=== PATIENT | female | born 1970 | race Caucasian/White ===

== ENCOUNTER → 2020-07-15 | Outpatient (CLI) | payer SELFPAY ==
[~2020-07-15] MED LIST: ASPI81TA55 PO; LISI20TA26 PO; TRAM50TA2 PO; hctz
== END ==
LOC: CARD 09:30
PROVIDERS: ATTEND Nurse Practitioner Family
DX: Z82.79 Family history of other congenital malformations, deformations and chromosomal abnormalities (principal)
CPT/HCPCS: 93306

== ENCOUNTER → 2020-08-21 | Outpatient (CLI) | payer SELFPAY | LOC: LABNPT 08:00 | PROVIDERS: ATTEND Nurse Practitioner Family | DX: Z01.812 Encounter for preprocedural laboratory examination (principal); Z20.822 Contact with and (suspected) exposure to COVID-19 | CPT/HCPCS: 87635 ==

== ENCOUNTER 2020-08-25 19:46 | Outpatient (CLI) | payer OTHER | END 2020-08-26 06:18 | disposition home or self-care (01) | LOC: SLEEP 19:46 | PROVIDERS: ATTEND Nurse Practitioner Family | DX: G47.33 Obstructive sleep apnea (adult) (pediatric) (principal) | CPT/HCPCS: 95810 ==

== ENCOUNTER → 2020-10-07 | Outpatient (CLI) | payer OTHER ==
[~2020-10-07] MED LIST changes: +CATHETER FLUSH 10 ML SYR IV PRN; +REGADENOSON 0.4 MG/5 ML SYR (LEXISCAN) IV ONE
[2020-10-07 13:10] VITALS: BP 162/84
--- NOTE | 2020-10-08 12:42 | Cardiology Stress Test Report ---
Stress Test Report Date of Procedure/Referring: Date of Procedure: Oct 07, 2020 PCP Oriana Hernandez MD Admitting Physician Center/[facility] Indications: CP Baseline Heart Rate: 81 Baseline Blood Pressure: Blood Pressure Systolic: 162 Blood Pressure Diastolic: 84 Baseline Vitals Vital Signs Date Time Temp Pulse Resp B/P (MAP) Pulse Ox O2 Delivery O2 Flow Rate FiO2 10/07/20 13:10 81 162/84 (110) 98 Baseline EKG: Baseline EKG: NSR Summary After explaining the procedure to the patient, she signed a consent and then brought to the stress nuclear laboratory. Patient received 0.4 mg Lexiscan for stress test, ECG, heart rate and blood pressure were monitored continuously. Resting and stress dose of radio tracer were injected, imaging was acquired and reviewed in short axis, horizontal long axis and vertical long axis views. TID: 0.99 SSS: 11 SDS: 9 EF: 67 1. Patient tolerated Lexiscan well 2. Breast attenuation affecting the quality of the images, there is reversible ischemia involving the whole anterior wall and anterolateral wall 3. Normal left ventricular size, EF 67% ORIANA HERNANDEZ MD Oct 08, 2020 12:42
== END ==
LOC: CARD 12:15
PROVIDERS: ATTEND Internal Medicine Cardiovascular Disease
DX: I25.10 Atherosclerotic heart disease of native coronary artery without angina pectoris (principal); I10 Essential (primary) hypertension
CPT/HCPCS: 78452; 93017; A9502

== ENCOUNTER 2020-10-27 12:28 | Emergency (ER) | payer OTHER ==
[~2020-10-27] VITALS: Ht 188 cm; Wt 143.0 kg
[~2020-10-27 12:28] MED LIST changes: +ASPI-1238 PO; -CATHETER FLUSH 10 ML SYR IV PRN; +FURO40TA4 PO; +GABA300C PO; +LEVO200C2 PO; +LOSA1TAB23 PO; +MTP25TSR PO; -REGADENOSON 0.4 MG/5 ML SYR (LEXISCAN) IV ONE
[2020-10-27] MEDS ORDERED: hydrALAZINE (APESOLINE) 20 MG/ML VIAL IV ONE (14:00)
--- NOTE | 2020-10-27 14:49 | Diagnostic Imaging Report ---
INDICATION: Hypertension Frontal chest obtained at 0226 p.m. and compared to 10/14/2020 Heart and mediastinal silhouette are normal in appearance. The lungs appear clear. There is no pneumothorax or pleural fluid. IMPRESSION: No acute process in the chest and no change compared to the prior study. Dictated by: Dictated on workstation # [id number]
[2020-10-27 14:50] LABS: BILIRUBIN,URINE NEGATIVE (NEGATIVE); CLARITY,URINE CLEAR; COLOR,URINE YELLOW; GLUCOSE, URINE (UA) NEGATIVE (NEGATIVE); KETONES,URINE NEGATIVE (NEGATIVE); LEUKOCYTE ESTERASE ,URINE NEGATIVE (NEGATIVE); NITRITE,URINE NEGATIVE (NEGATIVE); PROTEIN,URINE NEGATIVE (NEGATIVE)
[2020-10-27 15:03] LABS: BASOPHILS # (AUTO) 0.1 10^3/uL (0.0-0.1); BASOPHILS % (AUTO) 1 % (0-10); EOSINOPHILS # (AUTO) 0.1 10^3/uL (0.0-0.3); EOSINOPHILS % (AUTO) 3 % (0-10); HEMATOCRIT 39 % (35-52); HEMOGLOBIN 11.5 g/dL (11.5-16.0); LYMPHOCYTES # (AUTO) 0.6 10^3/uL (1.0-4.0); LYMPHOCYTES % (AUTO) 14 % (12-44); MEAN CORPUSCULAR HEMOGLOBIN 26 pg (25-34); MEAN CORPUSCULAR HGB CONC 30 g/dL (32-36); MEAN CORPUSCULAR VOLUME 86 fL (80-99); MEAN PLATELET VOLUME 11.9 fL (9.0-12.2); MONOCYTES # (AUTO) 0.4 10^3/uL (0.0-1.0); MONOCYTES % (AUTO) 8 % (0-12); NEUTROPHILS # (AUTO) 3.4 10^3/uL (1.8-7.8); NEUTROPHILS % (AUTO) 74 % (42-75); PLATELET COUNT 205 10^3/uL (130-400); WHITE BLOOD COUNT 4.6 10^3/uL (4.3-11.0)
[2020-10-27 15:07] LABS: BACTERIA,URINE NEGATIVE /HPF
[2020-10-27 15:14] LABS: ALBUMIN 4.3 GM/DL (3.2-4.5)
[2020-10-27 15:15] LABS: CHLORIDE 103 MMOL/L (98-107); POTASSIUM 3.7 MMOL/L (3.6-5.0); SODIUM 139 MMOL/L (135-145)
[2020-10-27 15:16] LABS: CALCIUM 9.8 MG/DL (8.5-10.1); PROTHROMBIN TIME PATIENT 13.4 SEC (12.2-14.7)
[2020-10-27 15:17] LABS: GLUCOSE 97 MG/DL (70-105); TOTAL PROTEIN 7.8 GM/DL (6.4-8.2)
[2020-10-27 15:18] LABS: CARBON DIOXIDE 22 MMOL/L (21-32)
[2020-10-27 15:19] LABS: BILIRUBIN,TOTAL 0.6 MG/DL (0.1-1.0)
[2020-10-27 15:20] LABS: ALKALINE PHOSPHATASE 78 U/L (40-136)
[2020-10-27 15:21] LABS: CREATININE SERUM 0.76 MG/DL (0.60-1.30); GFR ESTIMATED > 60
[2020-10-27 15:22] LABS: BUN/CREATININE RATIO 14
[2020-10-27 15:24] LABS: ALANINE AMINOTRANSFERASE 20 U/L (0-55)
--- NOTE | 2020-10-27 15:46 | ED Cardiac General ---
History of Present Illness General Chief Complaint: Cardiac/General Problems Stated Complaint: HIGH BP Nursing Triage Note: Pt reports to ER today ambulatory from [facility] with complaints of High blood pressure. Pt went to [facility] initially for a scheduled appt to have labs drawn. Before the lab draw, they checked her BP and it was elevated. She was instructed by [facility] to come to the ER and be seen/evaluated. Allergies and Home Medications Allergies Coded Allergies: tramadol (Verified Allergy, Unknown, 10/14/20) Home Medications Aspirin 81 Mg Tablet.dr, 81 MG PO DAILY, (Reported) Furosemide 40 Mg Tablet, 40 MG PO DAILY PRN for WATER RETENTION, (Reported) Gabapentin 300 Mg Capsule, 300 MG PO TID PRN for NERVE PAIN, (Reported) Levothyroxine Sodium 200 Mcg Capsule, 200 MCG PO DAILY, (Reported) Losartan/Hydrochlorothiazide 1 Each Tablet, 1 EACH PO DAILY, (Reported) LAST FILLED 06/01/2020 #90 90 DAY SUPPLY Metoprolol Succinate 25 Mg Tab.er.24h, 25 MG PO DAILY, (Reported) Past Geswgzg-Qufsct-Jlluev Hx Past Medical History Section, Tonsillectomy, Tubal Ligation Respiratory: Yes (SOB, POSS COPD) Cardiac: Yes High Cholesterol, Hypertension Neurological: No Genitourinary: No Gastrointestinal: No Cancer: No Physical Exam Vital Signs Vital Signs - First Documented 10/27/20 12:50 Temp 36.6 Pulse 74 Resp 24 B/P (MAP) 216/102 (140) Capillary Refill : Less Than 3 Seconds Height, Weight, BMI Height: '" Weight: lbs. oz. kg; 40.00 BMI Method: Progress/Results/Core Measures Results/Orders Lab Results Laboratory Tests Test 10/27/20 14:27 10/27/20 14:50 Range/Units Urine Color YELLOW Urine Clarity CLEAR Urine pH 6.0 5-9 Urine Specific [place] 1.025 H 1.016-1.022 Urine Protein NEGATIVE NEGATIVE Urine Glucose (UA) NEGATIVE NEGATIVE Urine Ketones NEGATIVE NEGATIVE Urine Nitrite NEGATIVE NEGATIVE Urine Bilirubin NEGATIVE NEGATIVE Urine Urobilinogen 0.2 < = 1.0 MG/DL Urine Leukocyte Esterase NEGATIVE NEGATIVE Urine RBC (Auto) NEGATIVE NEGATIVE Urine RBC NONE /HPF Urine WBC NONE /HPF Urine Squamous Epithelial Cells 5-10 /HPF Urine Crystals NONE /LPF Urine Bacteria NEGATIVE /HPF Urine Casts NONE /LPF Urine Mucus NEGATIVE /LPF Urine Culture Indicated NO White Blood Count 4.6 4.3-11.0 10^3/uL Red Blood Count 4.50 3.80-5.11 10^6/uL Hemoglobin 11.5 11.5-16.0 g/dL Hematocrit 39 35-52 % Mean Corpuscular Volume 86 80-99 fL Mean Corpuscular Hemoglobin 26 25-34 pg Mean Corpuscular Hemoglobin Concent 30 L 32-36 g/dL Red Cell Distribution Width 15.5 H 10.0-14.5 % Platelet Count 205 130-400 10^3/uL Mean Platelet Volume 11.9 9.0-12.2 fL Immature Granulocyte % (Auto) 0 % Neutrophils (%) (Auto) 74 42-75 % Lymphocytes (%) (Auto) 14 12-44 % Monocytes (%) (Auto) 8 0-12 % Eosinophils (%) (Auto) 3 0-10 % Basophils (%) (Auto) 1 0-10 % Neutrophils # (Auto) 3.4 1.8-7.8 10^3/uL Lymphocytes # (Auto) 0.6 L 1.0-4.0 10^3/uL Monocytes # (Auto) 0.4 0.0-1.0 10^3/uL Eosinophils # (Auto) 0.1 0.0-0.3 10^3/uL Basophils # (Auto) 0.1 0.0-0.1 10^3/uL Immature Granulocyte # (Auto) 0.0 0.0-0.1 10^3/uL Prothrombin Time 13.4 12.2-14.7 SEC INR Comment 1.0 0.8-1.4 Activated Partial Thromboplast Time 37 H 24-35 SEC Sodium Level 139 135-145 MMOL/L Potassium Level 3.7 3.6-5.0 MMOL/L Chloride Level 103 98-107 MMOL/L Carbon Dioxide Level 22 21-32 MMOL/L Anion Gap 14 5-14 MMOL/L Blood Urea Nitrogen 11 7-18 MG/DL Creatinine 0.76 0.60-1.30 MG/DL Estimat Glomerular Filtration Rate > 60 BUN/Creatinine Ratio 14 Glucose Level 97 70-105 MG/DL Calcium Level 9.8 8.5-10.1 MG/DL Corrected Calcium 9.6 8.5-10.1 MG/DL Magnesium Level 2.0 1.6-2.4 MG/DL Total Bilirubin 0.6 0.1-1.0 MG/DL Aspartate Amino Transf (AST/SGOT) 20 5-34 U/L Alanine Aminotransferase (ALT/SGPT) 20 0-55 U/L Alkaline Phosphatase 78 40-136 U/L Troponin I < 0.028 <0.028 NG/ML B-Type Natriuretic Peptide 82.5 <100.0 PG/ML Total Protein 7.8 6.4-8.2 GM/DL Albumin 4.3 3.2-4.5 GM/DL Serum Test, Qualitative NEGATIVE NEGATIVE My Orders Orders - SIGRID GUARDADO DO Ed Iv/Invasive Line Start (10/27/20 13:35) Ekg Tracing (10/27/20 13:35) Monitor-Rhythm Ecg Trace Only (10/27/20 13:35) BNP (10/27/20 13:35) Cbc With Automated Diff (10/27/20 13:35) Comprehensive Metabolic Panel (10/27/20 13:35) Hcg,Qualitative Serum (10/27/20 13:35) Magnesium (10/27/20 13:35) Protime With Inr (10/27/20 13:35) Partial Thromboplastin Time (10/27/20 13:35) Ua Culture If Indicated (10/27/20 13:35) Troponin I (10/27/20 13:35) Chest 1 View, Ap/Pa Only (10/27/20 13:46) Hydralazine Injection (Apresoline Inject (10/27/20 14:00) Medications Given in ED Current Medications Medications Dose Ordered Sig/Eula Route Start Time Stop Time Status Last Admin Dose Admin Hydralazine HCl 10 mg ONCE ONCE IV 10/27/20 14:00 10/27/20 14:01 DC 10/27/20 14:42 10 MG Vital Signs/I&O 10/27/20 12:50 Temp 36.6 Pulse 74 Resp 24 B/P (MAP) 216/102 (140) Blood Pressure Mean: 140 Departure Impression Primary Impression: HTN (hypertension) Disposition: 01 HOME, SELF-CARE Condition: Improved Departure-Patient Inst. Decision time for Depature: 15:45 Referrals: [facility] (PCP/Family) Primary Care Physician ORINAA BEACH MD Patient Instructions: DASH Diet, High Blood Pressure (DC) Add. Discharge Instructions: TAKE YOUR MEDICATIONS PRESCRIBED--TAKE BOTH THE LOSARTAN/HYDROCHLOROTHIAZIDE IN ADDITION TO METOPROLOL FOLLOW UP WITH DR. BEACH THIS WEEK FOR FURTHER CARE All discharge instructions reviewed with patient and/or family. Voiced und erstanding. SIGRID GUARDADO DO Oct 27, 2020 15:46
[2020-10-27 16:00] VITALS: BP 170/87
== END 2020-10-27 16:00 | disposition home or self-care (01) ==
LOC: EDUNIT# 12:28 → ER 12:30
DX: I10 Essential (primary) hypertension (principal); Z79.82 Long term (current) use of aspirin; Z79.899 Other long term (current) drug therapy
CPT/HCPCS: 36415; 71045; 80053; 81000; 83735; 83880; 84484; 84703; 85025; 85610; 85730; 93005; 93041

== ENCOUNTER 2022-11-24 18:36 | Emergency (ER) | payer SELFPAY ==
[~2022-11-24] VITALS: Ht 188 cm; Wt 124.0 kg
[2022-11-24 18:50] VITALS: BP 150/95
--- NOTE | 2022-11-24 19:03 | ED General ---
General Stated Complaint: DIZZY/DOUBLE VISION/WEAKNESS Source of Information: Patient Exam Limitations: No Limitations (KENDRA WEIR) History of Present Illness Date Seen by Provider: Nov 24, 2022 Time Seen by Provider: 19:00 Initial Comments Patient is a 52-year-old female with a history of hypothyroidism who presents to ED for lightheadedness, nausea and the sensation that she is going to pass out. Symptoms started around 1 PM today while making lunch. She denies the sensation as a room spinning. Feels more lightheaded. She feels weak she feels like she is going to vomit. She denies of any specific headache, visual loss, unilateral weakness or sensory changes, chest pain, cough or shortness of breath. She was seen at [facility] was sent over to the ED for concern for her symptoms. She was seen yesterday had a increase of her levothyroxine to 300 mcg. She was started on Lyrica 75 due to her neuropathy pain in her lower legs. She has chronic lower leg swelling for the past 4 years. Has been on Lasix for 4 years. No known cardiac history according to patient. She denies any recent travels or surgeries. Denies any fever, chills, body aches, sore throat, cough, abdominal pain, vomiting, diarrhea, dysuria, hematuria. Patient reports global weakness (KENDRA WEIR) Allergies and Home Medications Allergies Coded Allergies: tramadol (Verified Allergy, Unknown, 10/14/20) Patient Home Medication List Home Medication List Reviewed: Yes (KENDRA WEIR) Aspirin (Aspirin EC) 81 Mg Tablet.dr, 81 MG PO DAILY, (Reported) Entered as Reported by: PRADEEP WESTBROOK on 10/14/20831 Furosemide (Furosemide) 40 Mg Tablet, 40 MG PO DAILY PRN for WATER RETENTION, (Reported) Entered as Reported by: PRADEEP WESTBROOK on 10/14/20831 Gabapentin (Neurontin) 300 Mg Capsule, 300 MG PO TID PRN for NERVE PAIN, (Reported) Entered as Reported by: PRADEEP WESTBROOK on 10/14/20 08 Levothyroxine Sodium (Levothyroxine) 200 Mcg Capsule, 200 MCG PO DAILY, (Reported) Entered as Reported by: PRADEEP WESTBROOK on 7/7/21 0832 Losartan/Hydrochlorothiazide (Losartan-Hctz 100-25 mg Tab) 1 Each Tablet, 1 EACH PO DAILY, (Reported) Entered as Reported by: PRADEEP WESTBROOK on 10/14/20 0832 Metoprolol Succinate (Metoprolol Succinate) 25 Mg Tab.er.24h, 25 MG PO DAILY, (Reported) Entered as Reported by: PRADEEP WESTBROOK on 10/14/20 0832 Review of Systems Review of Systems Constitutional: No chills; dizziness, malaise, weakness EENTM: No hearing loss, No ear pain, No blurred vision, No double vision Respiratory: No cough, No dyspnea on exertion Cardiovascular: No chest pain Gastrointestinal: No abdominal pain, No diarrhea, No nausea, No vomiting Genitourinary: No decreased output, No discharge Musculoskeletal: No back pain, No joint pain (KENDRA WEIR) All Other Systems Reviewed Negative Unless Noted: Yes (KENDRA WEIR) Past Enntgbi-Nzscrv-Clekqm Hx Past Medical History Surgery/Hospitalization HX: CARDIAC CATH 10/14/20--MILD DISEASE, NO INTERVENTION Surgeries: Yes Cardiac, Section, Tonsillectomy, Tubal Ligation Respiratory: Yes (SOB, POSS COPD) Cardiac: Yes Chronic Edema/Swelling, High Cholesterol, Hypertension Neurological: No Genitourinary: No Gastrointestinal: No Musculoskeletal: No Endocrine: Yes (MORBID OBESITY) HEENT: No Cancer: No Psychosocial: Yes Anxiety Integumentary: No Blood Disorders: No (KENDRA WEIR) Physical Exam Vital Signs Vital Signs - First Documented 11/24/22 18:50 Temp 36.9 Pulse 75 Resp 18 B/P (MAP) 150/95 (113) O2 Delivery Room Air (GEO,SIGRID K DO) Vital Signs Capillary Refill : (KENDRA WEIR) Height, Weight, BMI Height: '" Weight: lbs. oz. kg; 40.00 BMI Method: General Appearance: No Apparent Distress, WD/WN Eyes: Bilateral Eye Normal Inspection, Bilateral Eye PERRL, Bilateral Eye EOMI HEENT: PERRL/EOMI, TMs Normal, Normal ENT Inspection, Pharynx Normal Neck: Full Range of Motion, Normal Inspection, Non Tender, Supple Respiratory: Chest Non Tender, Lungs Clear, Normal Breath Sounds, No Accessory Muscle Use, No Respiratory Distress Cardiovascular: Regular Rate, Rhythm, No Gallop, No JVD, No Murmur, Other (Bilateral lower extremity edema) Gastrointestinal: Normal Bowel Sounds, No Organomegaly, No Pulsatile Mass, Non Tender Back: Normal Inspection, No CVA Tenderness, No Vertebral Tenderness Extremity: Normal Capillary Refill, Normal Inspection, Normal Range of Motion, Non Tender Neurologic/Psychiatric: Alert, Oriented x3, No Motor/Sensory Deficits, Normal Mood/Affect, centerpuncher II-XII Norm as Tested Skin: Other (Stasis dermatitis bilateral lower extremities with +2 pitting edema) (KENDRA WEIR) Progress/Results/Core Measures Suspected Sepsis SIRS Temperature: Pulse: Respiratory Rate: Laboratory Tests 11/24/22 19:14: White Blood Count 4.5 Blood Pressure / Mean: Laboratory Tests 11/24/22 19:14: Creatinine 1.08, Platelet Count 159, Total Bilirubin 0.6 (KENDRA WEIR) Results/Orders Lab Results Laboratory Tests Test 11/24/22 19:14 11/24/22 19:55 Range/Units White Blood Count 4.5 4.3-11.0 10^3/uL Red Blood Count 4.06 3.80-5.11 10^6/uL Hemoglobin 12.6 11.5-16.0 g/dL Hematocrit 39 35-52 % Mean Corpuscular Volume 95 80-99 fL Mean Corpuscular Hemoglobin 31 25-34 pg Mean Corpuscular Hemoglobin Concent 33 32-36 g/dL Red Cell Distribution Width 14.1 10.0-14.5 % Platelet Count 159 130-400 10^3/uL Mean Platelet Volume 12.2 9.0-12.2 fL Immature Granulocyte % (Auto) 0 % Neutrophils (%) (Auto) 76 H 42-75 % Lymphocytes (%) (Auto) 12 12-44 % Monocytes (%) (Auto) 9 0-12 % Eosinophils (%) (Auto) 2 0-10 % Basophils (%) (Auto) 1 0-10 % Neutrophils # (Auto) 3.5 1.8-7.8 10^3/uL Lymphocytes # (Auto) 0.5 L 1.0-4.0 10^3/uL Monocytes # (Auto) 0.4 0.0-1.0 10^3/uL Eosinophils # (Auto) 0.1 0.0-0.3 10^3/uL Basophils # (Auto) 0.0 0.0-0.1 10^3/uL Immature Granulocyte # (Auto) 0.0 0.0-0.1 10^3/uL Sodium Level 140 135-145 MMOL/L Potassium Level 4.1 3.6-5.0 MMOL/L Chloride Level 103 98-107 MMOL/L Carbon Dioxide Level 25 21-32 MMOL/L Anion Gap 12 5-14 MMOL/L Blood Urea Nitrogen 19 H 7-18 MG/DL Creatinine 1.08 0.60-1.30 MG/DL Estimat Glomerular Filtration Rate 62 BUN/Creatinine Ratio 18 Glucose Level 106 H 70-105 MG/DL Calcium Level 10.1 8.5-10.1 MG/DL Corrected Calcium 8.5-10.1 MG/DL Magnesium Level 2.1 1.6-2.4 MG/DL Total Bilirubin 0.6 0.1-1.0 MG/DL Aspartate Amino Transf (AST/SGOT) 26 5-34 U/L Alanine Aminotransferase (ALT/SGPT) 25 0-55 U/L Alkaline Phosphatase 96 40-136 U/L C-Reactive Protein High Sensitivity 0.59 H 0.00-0.50 MG/DL Total Protein 8.9 H 6.4-8.2 GM/DL Albumin 4.7 H 3.2-4.5 GM/DL Lipase 23 8-78 U/L Thyroid Stimulating Hormone (TSH) 6.04 H 0.35-4.94 UIU/ML Urine Color YELLOW Urine Clarity CLEAR Urine pH 6.0 5-9 Urine Specific [place] 1.010 L 1.016-1.022 Urine Protein NEGATIVE NEGATIVE Urine Glucose (UA) NEGATIVE NEGATIVE Urine Ketones NEGATIVE NEGATIVE Urine Nitrite NEGATIVE NEGATIVE Urine Bilirubin NEGATIVE NEGATIVE Urine Urobilinogen 0.2 < = 1.0 MG/DL Urine Leukocyte Esterase 1+ H NEGATIVE Urine RBC (Auto) NEGATIVE NEGATIVE Urine RBC NONE /HPF Urine WBC 2-5 /HPF Urine Squamous Epithelial Cells 5-10 /HPF Urine Crystals NONE /LPF Urine Bacteria TRACE /HPF Urine Casts NONE /LPF Urine Mucus SMALL H /LPF Urine Culture Indicated NO (GEO,SIGRID K DO) Medications Given in ED Current Medications Medications Dose Ordered Sig/Eula Route Start Time Stop Time Status Last Admin Dose Admin Meclizine HCl 25 mg ONCE ONCE PO 11/24/22 20:15 11/24/22 20:16 DC 11/24/22 20:08 25 MG Ondansetron HCl 4 mg ONCE ONCE IVP 11/24/22 20:15 11/24/22 20:16 DC 11/24/22 20:08 4 MG (GEOSIGRID Peggy ZACARIAS) Vital Signs/I&O 11/24/22 18:50 Temp 36.9 Pulse 75 Resp 18 B/P (MAP) 150/95 (113) O2 Delivery Room Air (SIGRID GUARDADO DO) Vital Signs/I&O Capillary Refill : (KENDRA WEIR) ECG Comment Sinus rhythm, possible right ventricular conduction delay, 71 bpm, QRS duration 126 MS, QTc 425 MS (KENDRA WEIR) Departure Communication (PCP) Reviewed previous ER visits, H&P, lab testing. Patient was sent over from [facility] for further evaluation of dizziness, lightheadedness, blurry vision. The symptoms started at 1 PM today while making lunch. She had acute episode of dizziness and lightheadedness. Denies the room spinning. Generalized weakness with the dizziness. Nausea without vomiting. Denied of any specific head pain or any focal neural deficits. No history of similar symptoms in the past. 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 She did have a cardiac catheterization 2020 that showed mild CAD. No specific chest pain, cough, shortness of breath or recent URI symptoms. She started Lyrica 75 mg p.o. last night which she has not taken in the past. Has been on gabapentin previously. Increase her levothyroxine to 300 mcg yesterday secondary to elevated TSH from recent lab work at [facility]. Chronic lower extremity edema currently on Lasix for 4 years. Patient vital signs stable. She denies any head pain, ear ringing, current blurry vision. Generalized lab work, EKG, CT scan of the head was ordered. CBC, CMP was grossly unremarkable. Urinalysis was negative for infection. TSH was 6.04. However she just increased her levothyroxine which I suspect changes here. CT scan of the head showed third ventriculomegaly. No evidence of stroke, mass. Due to the CT scan findings consulted with Dr. Prado neurologist at [facility]. Patient does not clinically have symptoms suggesting pseudotumor cerebri. Clinically does not appear to be like meningitis. Clinically does not appear to be NPH as she has no poor balance, falling, trouble walking, unsteady gait, mood changes or cognitive difficulties. After talking with neurologist he thought this is likely more of a chronic finding. He did not suggest getting a MRI or even doing a lumbar puncture at this time. He did not necessarily suggest getting follow-up imaging at this time. If she does develop any symptoms of severe head pain, ear ringing, vision changes, coordination concerns or cognitive difficulties then further evaluation would be suggested. Recommend following up with her primary care physician for reevaluation. After a dose of meclizine and Zofran her symptoms appear to be improving. There was no appreciation of nystagmus. Vital signs remained stable. No focal neural deficits. Recommend follow-up your PCP in 2 days for reevaluation. (KENDRA WEIR) Impression Primary Impression: Dizziness Disposition: 01 HOME, SELF-CARE Condition: Stable Departure-Patient Inst. Decision time for Depature: 21:36 (KENDRA WEIR) Referrals: [facility] [place] Primary Care Physician Patient Instructions: Dizziness, Adult ED Add. Discharge Instructions: Recommend following up with your primary care physician regarding the Lyrica. If any worsening symptoms return back to ED. ATTENDING PHYSICIAN NOTE: I WAS PHYSICALLY PRESENT ER PHYSICIAN, BUT I WAS NOT INVOLVED IN ANY DECISION MAKING OR ANY CARE OF THIS PATIENT, AND I AM NOT COLLABORATING PHYSICIAN. (SIGRID GUARDADO DO) KENDRA WEIR Nov 24, 2022 19:03 SIGRID GUARDADO DO Nov 25, 2022 06:07
[2022-11-24 19:26] LABS: BASOPHILS % (AUTO) 1 % (0-10); EOSINOPHILS # (AUTO) 0.1 10^3/uL (0.0-0.3); EOSINOPHILS % (AUTO) 2 % (0-10); HEMATOCRIT 39 % (35-52); HEMOGLOBIN 12.6 g/dL (11.5-16.0); LYMPHOCYTES # (AUTO) 0.5 10^3/uL (1.0-4.0); LYMPHOCYTES % (AUTO) 12 % (12-44); MEAN CORPUSCULAR HEMOGLOBIN 31 pg (25-34); MEAN CORPUSCULAR HGB CONC 33 g/dL (32-36); MEAN CORPUSCULAR VOLUME 95 fL (80-99); MEAN PLATELET VOLUME 12.2 fL (9.0-12.2); MONOCYTES # (AUTO) 0.4 10^3/uL (0.0-1.0); MONOCYTES % (AUTO) 9 % (0-12); NEUTROPHILS # (AUTO) 3.5 10^3/uL (1.8-7.8); NEUTROPHILS % (AUTO) 76 % (42-75); PLATELET COUNT 159 10^3/uL (130-400); WHITE BLOOD COUNT 4.5 10^3/uL (4.3-11.0)
[2022-11-24 20:12] LABS: ALANINE AMINOTRANSFERASE 25 U/L (0-55); ALBUMIN 4.7 GM/DL (3.2-4.5); ALKALINE PHOSPHATASE 96 U/L (40-136); BILIRUBIN,TOTAL 0.6 MG/DL (0.1-1.0); BUN/CREATININE RATIO 18; CALCIUM 10.1 MG/DL (8.5-10.1); CHLORIDE 103 MMOL/L (98-107); CREATININE SERUM 1.08 MG/DL (0.60-1.30); GFR ESTIMATED 62; GLUCOSE 106 MG/DL (70-105); LIPASE 23 U/L (8-78); MAGNESIUM 2.1 MG/DL (1.6-2.4); POTASSIUM 4.1 MMOL/L (3.6-5.0); SODIUM 140 MMOL/L (135-145); TOTAL PROTEIN 8.9 GM/DL (6.4-8.2)
[2022-11-24] MEDS ORDERED: ONDANSETRON 4 MG/2 ML (SDV) Z0FRAN IVP ONE (20:15)
[2022-11-24] MEDS ORDERED: MECLIZINE 25 MG TABLET PO ONE (20:15)
[2022-11-24 20:18] LABS: BACTERIA,URINE TRACE /HPF; BILIRUBIN,URINE NEGATIVE (NEGATIVE); CLARITY,URINE CLEAR; COLOR,URINE YELLOW; GLUCOSE, URINE (UA) NEGATIVE (NEGATIVE); KETONES,URINE NEGATIVE (NEGATIVE); LEUKOCYTE ESTERASE ,URINE 1+ (NEGATIVE); NITRITE,URINE NEGATIVE (NEGATIVE); PROTEIN,URINE NEGATIVE (NEGATIVE)
[2022-11-24 20:19] LABS: CARBON DIOXIDE 25 MMOL/L (21-32)
--- NOTE | 2022-11-24 20:37 | Diagnostic Imaging Report ---
PROCEDURE: CT head without contrast. TECHNIQUE: Multiple contiguous axial images were obtained through the brain without the use of intravenous contrast. Auto Exposure Controls were utilized during the CT exam to meet ALARA standards for radiation dose reduction. INDICATION: Dizziness. Double vision. COMPARISON: None. FINDINGS: No intracranial hemorrhage, mass effect or extra-axial fluid collections. Prominent size of the ventricular system without an obstructing lesion identified. Maximum width of the 3rd ventricle measures up 1.[address] evidence of an acute territorial infarction. Osseous structures are intact. Mild mucosal thickening in the left maxillary sinus. The mastoids are clear. IMPRESSION: 1. Hydrocephalus without an obstructing lesion identified. Findings can be seen with any clinical setting of normal pressure hydrocephalus. 2. No evidence of acute infarction or hemorrhage. Dictated by: Dictated on workstation # [id number]
== END 2022-11-24 21:42 | disposition home or self-care (01) ==
LOC: EDUNIT# 18:36 → ER 18:40
DX: R42 Dizziness and giddiness (principal); E66.01 Morbid (severe) obesity due to excess calories; Z68.41 Body mass index [BMI] 40.0-44.9, adult; Z79.899 Other long term (current) drug therapy
CPT/HCPCS: 36415; 70450; 80053; 81000; 83690; 83735; 84443; 85025; 86141; 93005

== ENCOUNTER → 2022-12-28 | Outpatient (CLI) | payer SELFPAY | LOC: CARD 10:17 | PROVIDERS: ATTEND Pediatrics | DX: I10 Essential (primary) hypertension (principal) | CPT/HCPCS: 93225; 93226 ==

== ENCOUNTER → 2023-01-10 | Outpatient (CLI) | payer OTHER | LOC: CANPRECLI → CARD 10:48 | PROVIDERS: ATTEND Pediatrics | DX: I10 Essential (primary) hypertension (principal) | CPT/HCPCS: 93306 ==

== ENCOUNTER 2023-02-02 19:16 | Outpatient (CLI) | payer SELFPAY | END 2023-02-03 06:14 | LOC: CANPRECLI → SLEEP 19:16 | PROVIDERS: ATTEND Pediatrics | DX: G47.33 Obstructive sleep apnea (adult) (pediatric) (principal) | CPT/HCPCS: 95810 ==